=== PATIENT | male | born 1985 | race Caucasian/White ===

== ENCOUNTER 2017-06-24 10:25 | Emergency (ER) | payer BC ==
[2017-06-24 10:30] VITALS: BP 133/90; PULSE 117; RESP 16; TEMP 97.5
[2017-06-24] MEDS ORDERED: KETOROLAC 60 MG/2 ML VIAL IM STA (11:08)
--- NOTE | 2017-06-24 11:09 | ED ---
General Adult HPI - General Chief complaint: Extremity Injury, Lower Stated complaint: rt ankle injury Time Seen by Provider: 06/24/17 10:30 Source: patient, RN notes reviewed Mode of arrival: ambulatory Limitations: no limitations - History of Present Illness Initial comments: This is a 32-year-old male who presents emergency Department complaining that he has right lateral ankle pain. Patient states last night he stepped off of a step and twisted it and inverted the ankle. Patient states since then the ankle has been painful to walk and it is mildly swollen. Patient states she can tolerate walking and he just wants to make sure there is no broken bones. Patient denies any foot pain patient denies any toe pain upper leg pain or knee pain. Patient denies any other injury or complaint at this time - Related Data Allergies Allergy/AdvReac Type Severity Reaction Status Date / Time No Known Allergies Allergy Verified 06/24/17 10:30 Review of Systems ROS Statement: Those systems with pertinent positive or pertinent negative responses have been documented in the HPI. ROS Other: All systems not noted in ROS Statement are negative. Past Medical History Past Medical History: No Reported History History of Any Multi-Drug Resistant Organisms: None Reported Past Surgical History: Orthopedic Surgery Additional Past Surgical History / Comment(s): left arm Past Psychological History: No Psychological Hx Reported Smoking Status: Current every day smoker Past Alcohol Use History: Occasional Past Drug Use History: None Reported General Exam - General Exam Comments Initial Comments: GENERAL Patient is well-developed and well-nourished. Patient is in mild distress. EYES Patient's pupils are equal and round. Extraocular motion is intact SKIN Unremarkable NEURO The patient is alert and oriented 3 PYSCH Patient has normal interpersonal interactions. MUSCULOSKELETAL Patient has some mild swelling of the lateral right ankle and mild tenderness to palpation. Limitations: no limitations Course Vital Signs 06/24/17 10:26 Temperature 97.5 F L Pulse Rate 117 H Respiratory 16 Rate Blood Pressure 133/90 O2 Sat by Pulse 96 Oximetry Medical Decision Making - Medical Decision Making Patient took his Toradol shot and then left AMA because he said he had to be at work. Disposition Clinical Impression: Ankle pain Disposition: Left Against Medical Advice Referrals: Olu Kraft DO [Primary Care Provider] - 1-2 days Time of Disposition: 12:25
== END 2017-06-24 12:00 | disposition left against medical advice (07) ==
LOC: EC 10:25
DX: M25.571 Pain in right ankle and joints of right foot (principal); F17.200 Nicotine dependence, unspecified, uncomplicated; X50.1XXA Overexertion from prolonged static or awkward postures, initial encounter
CPT/HCPCS: 99283; 96372; J1885

== ENCOUNTER 2018-04-09 23:07 | Emergency (ER) | payer OTHER, BC ==
[2018-04-09 23:49] VITALS: BP 125/83; PULSE 91; RESP 18; TEMP 97
[2018-04-10] MEDS ORDERED: KETOROLAC 60 MG/2 ML VIAL IM STA (00:26)
[2018-04-10] MEDS ORDERED: ORPHENADRINE 30 MG/ML 2 ML VIAL IM STA (00:26)
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
[2018-04-10] MEDS ORDERED: ORPHENADRINE 30 MG/ML 2 ML VIAL ONE (02:00)
[2018-04-10] MEDS ORDERED: ACET/COD 300 MG/30 MG STARTER PACK 6 TAB BTL PO ONE (02:00)
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
== END 2018-04-10 03:41 | disposition home or self-care (01) ==
LOC: EC 23:07
DX: S13.4XXA Sprain of ligaments of cervical spine, initial encounter (principal); F17.200 Nicotine dependence, unspecified, uncomplicated; Z79.899 Other long term (current) drug therapy; Z53.20 Procedure and treatment not carried out because of patient's decision for unspecified reasons; V43.92XA Unspecified car occupant injured in collision with other type car in traffic accident, initial encounter; Y92.410 Unspecified street and highway as the place of occurrence of the external cause
CPT/HCPCS: 72070; 72040; 71046; 99283; 96372; J2360; J1885